=== PATIENT | male | born 1970 | race Two or more races ===

== ENCOUNTER 2017-04-17 09:57 | Inpatient (IN) | payer MEDICARE, MEDICAID, BC ==
--- NOTE | 2017-04-10 15:15 | HP ---
HISTORY AND PHYSICAL: DATE OF ADMISSION/SURGERY: 04/17/17 DATE OF OFFICE VISIT: 04/06/17 SURGEON: Jenniffer Owen MD * (DICTATED BY TERRY GUPTA) PROCEDURE: Left total hip arthroplasty. CHIEF COMPLAINT: Left hip pain. HISTORY OF PRESENT ILLNESS: Mr. Casillas is a 46-year-old Down syndrome gentleman accompanied by his mother at today's visit. He has continued complaints of left hip pain secondary to end-stage osteoarthritis of the left hip joint. He failed conservative management and is elected to proceed with a left total hip arthroplasty. PAST MEDICAL HISTORY: Down syndrome, asthma, sleep apnea, peripheral vascular disease, gout, hypothyroidism, and macular degeneration. PAST SURGICAL HISTORY: Hernia repair x2. CURRENT MEDICATIONS: 1. Vitamin D. 2. Naproxen. 3. Dulera. 4. Fexofenadine. 5. Indomethacin. 6. Multivitamin. 7. Foltanx. 8. Imodium. 9. PreserVision. 10. ProAir HFA. 11. Synthroid 150 mcg daily. ALLERGIES: To PENICILLIN, ERYTHROMYCIN, IODINE, POLLEN, GLUTEN, IV CONTRAST DYE. FAMILY HISTORY: Heart disease, diabetes, cancer. SOCIAL HISTORY: This is a 46-year-old gentleman, he lives with his parents. He does not smoke, use drugs or alcohol. REVIEW OF SYSTEMS: A complete 14-point review of systems is reviewed with the patient, was positive for hypothyroidism. He denies any heart disease, diabetes , history of DVT, PE or anesthesia problems. PHYSICAL EXAMINATION GENERAL: He is well developed, well nourished, in no acute distress. VITAL SIGNS: He stands 5 feet 6 inches tall, weighs 287 pounds. His blood pressure is 121/68, his heart rate is 54. HEENT: Normocephalic, atraumatic. NECK: Supple. No palpable lymph nodes. PULMONARY: Lungs are clear to auscultation bilaterally. CARDIO: Regular rate and rhythm. Strong S1 and S2. NEUROLOGIC: He is alert and oriented x3. Cranial nerves II through XII are intact. MUSCULOSKELETAL: Left lower extremity, the skin is intact. There are no open wounds or abrasions. He has fairly limited internal and external rotation of the left hip and walks with an antalgic type gait. His lower extremity muscle group strengths are intact at 5/5. He has 2+ dorsalis pedis pulses. Intact sensation. ASSESSMENT AND PLAN: Mr. Casillas is a 46-year-old gentleman. He is accompanied with his mother at today's visit. They have both elected to proceed with a left total hip arthroplasty secondary to end-stage osteoarthritis. The surgery is scheduled for 04/17/[address] Owen discussed the risks and benefits of the surgery at today's visit and all of his questions were answered. Coumadin, Percocet and Colace were sent to his pharmacy for postoperative pain control and DVT prophylaxis. He will see Dr. Owen back 2 weeks after the surgery. TERRY GUPTA [id number]/[facility] #: [id number] MTDD
[~2017-04-17 09:57] MED LIST: Buffered Lidocaine 0.9% SYRIN* 5 ML/SYR SYRINGE INTRADERM ONE; Dexamethasone IV* 4 MG/ML 1 ML (4 MG) IV SLOW PU ONE; Famotidine IV* 10 MG/ML 2 ML (20 mg) IV ONE; Levalbuterol 0.63MG/3ML NEB* UNIT OF USE INH ONE; Metoclopramide IV* 5 MG/ML 2 ML VIAL IV SLOW PU ONE
[2017-04-17] MEDS ORDERED: Famotidine IV* 10 MG/ML 2 ML (20 mg) ONE (10:05)
[2017-04-17] MEDS ORDERED: Metoclopramide IV* 5 MG/ML 2 ML VIAL ONE (10:05)
[2017-04-17] MEDS ORDERED: Levalbuterol 1.25MG/0.5ML NEB ONE (10:05)
[2017-04-17] MEDS ORDERED: Dexamethasone IV* 4 MG/ML 1 ML (4 MG) ONE (10:05)
[2017-04-17] MEDS ORDERED: Clindamycin 900 MG IVPREMIX(* 900 MG/50 ML SDV IV ONE (10:06)
[2017-04-17] MEDS ORDERED: Buffered Lidocaine 0.9% SYRIN* 5 ML/SYR SYRINGE ONE (10:06)
[2017-04-17] MEDS ORDERED: KETAMINE HCL* 50 MG/ML 10 ML VIAL ONE (11:29)
[2017-04-17] MEDS ORDERED: Midazolam* 1 MG/ML 5 ML VIAL (5 MG) ONE (11:29)
[2017-04-17] MEDS ORDERED: Bupivacaine 0.5% SDV PF* 30 ML VIAL ONE (11:29)
[2017-04-17] MEDS ORDERED: Ondansetron INJ* 2 MG/ML VIAL ONE (11:29)
[2017-04-17] MEDS ORDERED: Propofol* 10 MG/ML 20 ML BTL IV PUSH ONE (11:29)
[2017-04-17] MEDS ORDERED: Morphine PF AMP (0.5MG/ML)* 5 MG/10 ML AMP ONE (11:29)
[2017-04-17] MEDS ORDERED: Glycopyrrolate IV* 0.2 MG/ML 1 ML VIAL ONE (12:07)
[2017-04-17] MEDS ORDERED: oxyCODONE/Acetamin 5/325 MG* TAB PO PRN ×2 (13:35)
[2017-04-17] MEDS ORDERED: Ondansetron INJ* 2 MG/ML VIAL IV PRN (13:35)
[2017-04-17] MEDS ORDERED: Naloxone* 0.4 MG/ML 1 ML VIAL IV PRN (13:35)
[2017-04-17] MEDS ORDERED: Nalbuphine* 20 MG/ML 1 ML VIAL IV PRN ×3 (13:35)
[2017-04-17] MEDS ORDERED: Scopolamine 1.5 mg* PATCH TRANSDERM PRN (13:35)
[2017-04-17] MEDS ORDERED: fentaNYL* 50 MCG/ML 2 ML VIAL (100 MCG VIAL) IV PRN (13:35)
[2017-04-17] MEDS ORDERED: fentaNYL* 50 MCG/ML 2 ML VIAL (100 MCG VIAL) ONE (14:28)
[2017-04-17] MEDS ORDERED: Magnesium Hydroxide LIQ* 30 ML UDC PO PRN (15:42)
[2017-04-17] MEDS ORDERED: Polyethylene Glycol 3350* 17 GM PACKET PO PRN (15:42)
[2017-04-17] MEDS ORDERED: Acetaminophen TAB* 325 MG PO PRN (15:42)
[2017-04-17] MEDS ORDERED: Bisacodyl SUPP* 10 MG SUPP PR PRN (15:42)
[2017-04-17] MEDS ORDERED: Albuterol HFA INHALER* 8 gm MDI INH PRN (15:45)
[2017-04-17] MEDS ORDERED: Fluticasone NASAL SPRAY 50MCG* 16 gm SPRAY BTL BOTH NARES PRN (15:45)
[2017-04-17] MEDS ORDERED: Ketoconazole 2 % CREAM (NF) 30 GM TUBE TOPICAL SCH (16:00)
--- NOTE | 2017-04-17 16:12 | RAD ---
INDICATION: Total left hip replacement surgery. COMPARISON: Comparison is made with a prior x-ray study of the left hip from March 12, 2017. TECHNIQUE: 3 portable x-ray studies of the left hip were obtained in the operating room. FINDINGS: The patient is undergoing a total left hip replacement surgery. The acetabular prosthesis is in place. There is also a femoral prostheses template present on the last 2 films. IMPRESSION: INTRAOPERATIVE CONTROL FILMS.
--- NOTE | 2017-04-17 16:20 | RAD ---
Indication: Postop LEFT total hip replacement. Comparison: March 12, 2017 radiographs. Technique: AP pelvis and AP and crosstable lateral views LEFT hip. Report: LEFT total hip prosthesis in place. Mild superior position of the acetabular component reflects pre-existing degenerative enlargement of the LEFT acetabulum. The trochanteric region appears symmetric with the RIGHT side. No periprosthetic fracture evident. Overlying soft tissue edema and subcutaneous emphysema. Surgical clips reflecting previous ventral hernia repair. IMPRESSION: Unremarkable immediate postop exam following LEFT total hip replacement.
[2017-04-17] MEDS: Mometasone/Formoter 200/5 MDI INH SCH (21:20)
[2017-04-17] MEDS ORDERED: Warfarin TAB(*) 6 MG PO ONE (22:00)
[2017-04-17] MEDS: Docusate CAP* 100 MG PO SCH (22:34)
[2017-04-17] MEDS: Clindamycin 600 MG IVPREMIX(* 600 MG/50 ML SDV IV SCH (22:35)
[2017-04-18] MEDS ORDERED: oxyCODONE TAB* 5 MG TAB PO PRN (04:00)
[2017-04-18] MEDS ORDERED: diPHENhydraMINE IV* 50 MG/ML 1 ml VIAL (BENADRYL) IV PRN (04:00)
[2017-04-18] MEDS ORDERED: Morphine INJ* 2 MG/ML 1 ML SYRINGE IV PRN (04:00)
[2017-04-18] MEDS ORDERED: Ondansetron INJ* 2 MG/ML VIAL IV PRN (04:00)
[2017-04-18] MEDS: Levothyroxine TAB* 150 MCG TAB PO SCH (05:56)
[2017-04-18] MEDS: Clindamycin 600 MG IVPREMIX(* 600 MG/50 ML SDV IV SCH ×2 (05:59→14:20)
[2017-04-18] MEDS ORDERED: Lactated Ringers 500 ml BAG* 500 ML IV ONE (06:20)
[2017-04-18 06:48] LABS: Hematocrit 31 % (42-52); Hemoglobin 10.2 g/dl (14.0-18.0)
[2017-04-18 07:03] LABS: BUN/Creatinine Ratio 12.6 (8-20); Calcium 8.3 mg/dL (8.6-10.3); EGFR African American 91.3 (>60); Potassium 4.3 mmol/L (3.5-5.0)
[2017-04-18] MEDS: oxyCODONE/Acetamin 5/325 MG* TAB PO PRN ×2 (07:07→12:38)
[2017-04-18] MEDS: Mometasone/Formoter 200/5 MDI INH SCH ×2 (08:27→21:55)
[2017-04-18] MEDS: Cholecalciferol TAB* 1000 UNITS PO SCH (08:51)
[2017-04-18] MEDS: Pyridoxine TAB* 50 MG PO SCH (08:51)
[2017-04-18] MEDS: Docusate CAP* 100 MG PO SCH ×2 (08:51→23:09)
[2017-04-18] MEDS ORDERED: Influenza VAC *QUAD* 2017-18* 0.5 ML SYRINGE IM ONE (09:00)
--- NOTE | 2017-04-18 09:37 | PN ---
Progress Note - Progress Note Date of Service: 04/18/17 SOAP: Subjective: []Patient seen OOB in chair, father present. He is doing well with mild complaints of left hip pain. He denies, SOB, dizziness or CP. Objective: [] Vital Signs Temp 97.7 F 04/18/17 07:35 Pulse 67 04/18/17 07:35 Resp 16 04/18/17 08:50 BP 98/51 04/18/17 07:35 Pulse Ox 100 04/18/17 08:00 Intake & Output 04/17/17 04/18/17 04/18/17 18:59 06:59 18:59 Intake Total 3535 1267 360 Output Total 300 450 Balance 3235 817 360 Weight 282 lb 9.6 oz Intake: IV Fluids 2850 935 LR 2850 935 IVPB 107 Clindamycin 107 Oral 685 225 360 Output: Hairston 300 450 Other: # Bowel Movements 0 Laboratory Results - last 24 hr 04/18/17 04/18/17 04/18/17 06:41 06:42 06:42 Hgb 10.2 L Hct 31 L INR (Anticoag Therapy) 1.06 Sodium 136 Potassium 4.3 Chloride 100 L Carbon Dioxide 32 Anion Gap 4 BUN 14 Creatinine 1.11 Est GFR ( Amer) 91.3 Est GFR (Non-Af Amer) 71.0 BUN/Creatinine Ratio 12.6 Glucose 143 H Calcium 8.3 L Left hip dressing in dry and intact calf Non tender and soft +DF/PF left ankle sensation and circulation intact Assessment: []s/p left total hip arthroplasty POD #1 Plan: []PT/OT WBAT LLE Coumadin with Lovenox bridge- 8mg today Home with VNS when goals met
[2017-04-18] MEDS: Multivitamins/Minerals TAB PO SCH (10:22)
--- NOTE | 2017-04-18 11:08 | OP ---
DATE OF OPERATION: 04/17/17 - ROOM #341 DATE OF : 68 ATTENDING SURGEON: Jenniffer Owen MD MEDICINE MAN: TERRY Landeros. Ms. Mckeon did help throughout the procedure with preparation of the leg, wound retraction, manipulation of the hip, and wound closure. ANESTHESIOLOGIST: Dr. Mehta ANESTHESIA: Spinal. PRE-OP DIAGNOSIS: Severe end-stage degenerative osteoarthritis of the left hip joint secondary to developmental dysplasia. POST-OP DIAGNOSIS: Severe end-stage degenerative osteoarthritis of the left hip joint secondary to developmental dysplasia. OPERATIVE PROCEDURE: Left total hip arthroplasty. COMPLICATIONS: None. EBL: 550 cc. SPECIMEN: Femoral head and acetabular reaming sent to pathology. HARDWARE USED: This is uncemented Neyda total hip hardware. For the acetabulum, a Trident Tritanium hemispherical shell 54E with one 15-mm screw. For the insert, an MDM liner cementless 42E. For the femoral stem, an accolade TMZF size 3 with a 132-degree neck. For the head, a Biolox delta ceramic V40 femoral head 28 -4 and the insert is an MDM Sabianism X3 28/48/42E. BRIEF HISTORY/INDICATION: Mr. Casillas is a 46-year-old gentleman with Down syndrome and chronic left hip pain. The patient's radiograph showed severe end- stage arthritis with [id number] contact secondary to developmental dysplasia. He did have acetabular and femoral anatomy consistent with developmental dysplasia and superior migration of the femoral head. The patient's parents felt that he had failed conservative treatment with physical therapy, antiinflammatories, pain medication, and ambulatory assistive devices. He could no longer walk or take part in chosen activities without severe pain. They elected to proceed with left total hip arthroplasty. The patient and his parents understood the risks of surgery included but were not limited to bleeding, infection, damage to nearby structures, continued pain, need for further surgery, intraoperative fracture, nerve palsy, hardware failure or loosening, dislocation, leg length discrepancies, stroke, heart attack, blood clot, and . They wished to proceed. INTRAOPERATIVE FINDINGS: Intraoperatively, the patient was noted to have anatomy consistent with developmental dysplasia. He had deformity of the acetabulum with shallow acetabulum, not well formed with superior migration of the femoral head. Femur had significant valgus, anteverted femoral neck with deformed femoral head. DESCRIPTION OF PROCEDURE: Mr. Casillas was identified in the preanesthesia unit. His left lower extremity was marked as the correct operative site. Informed consent was signed and placed in the chart. The patient was taken to the operating room and placed under spinal anesthesia. A Hairston catheter was placed. He was placed on the peg board in the right lateral decubitus position with all bony prominences well padded. Left lower extremity was prepped and draped in the usual sterile fashion. Preop time-out was made to correctly identify the patient's side and site. Appropriate perioperative antibiotics were given within 1 hour of incision. A 15-cm posterior hip incision was made with a 10-blade and carried down to the lateral fascial layer. Lateral fascial layer was incised in line with the skin incision. The patient had 8 cm of subcutaneous fat and his morbid obese body habitus did make the procedure more complex and difficult. Charnley retractor was placed. The piriformis and conjoint tendons were identified and elevated off the posterolateral femur using electrocautery. These were tagged with two # 5 Ethibonds. Next, the electrocautery was used to make a standard posterolateral capsular flap and this was tagged with two #5 Ethibonds. The hip was carefully dislocated. Lesser troch to center of the femoral neck was measured at approximately 50 mm. The appropriate femoral neck cut was made with an oscillating saw and the femoral head was sent to pathology. The femur was carefully retracted anteriorly. After appropriate placement of retractors, the acetabulum was visualized. The acetabulum was shallow and poorly defined. There was superior wear, which was extensive. A size-48 reamer was used to establish a position for the acetabular cup. Reamer was increased in size to size 53. Bleeding subchondral bone bed was obtained. 53 trial had good fit. Final implant chosen was a Trident Tritanium hemispherical shell 54E, this had excellent fit and stability. There was appropriate anteversion and abduction angle. A 15-mm screw was placed in the superoposterior quadrant for extra stability. Liner chosen was a cementless MDM liner 42E, this was impacted into the acetabulum without difficulty. The stability of the liner was checked and rechecked and noted to be stable. Attention was next turned to preparation of the femur. Canal finder was used to enter the proximal femur. The femur was sequentially broached up to a size 3. Femoral anatomy was abnormal with valgus neck that had increased anteversion. A size 3 femoral broach had good stability. A 132 neck trial was chosen as well as a 28 -4 femoral head as well as the insert 28/48/42E trial. The hip was reduced and taken through a range of motion. Soft tissue tension was appropriate and leg lengths were satisfactory. The hip was stable in all positions. All trials were carefully removed. Final implant chosen was an Accolade TMZF size 3 with a 132-degree neck. This was impacted into the femoral canal without difficulty. Good stability was achieved. Anteversion was appropriate. A 28 -4 Biolox delta ceramic V40 femoral head was chosen as well as a 28/48/42E MDM X3 Sabianism insert. This was impacted onto the femoral stem without difficulty. The hip was reduced and taken through a range of motion. The hip was stable in all positions. There was good soft tissue tension and leg lengths were appropriate. The hip was copiously irrigated with sterile saline. The previously tagged capsule and tendons were reapproximated to the posterolateral femur through trochanteric drill holes. The lateral fascial layer was reapproximated using interrupted #1 Vicryls. The rest of the incision was closed in a layered fashion using 0 and 2-0 Vicryls. Skin was closed using running 3-0 Monocryl and Dermabond. Sterile Adaptic, 4x4s, and paper tape were used to cover the incision. The patient's anesthesia was reversed without difficulty. He was taken to the PACU in stable condition. Intended weightbearing will be weightbearing as tolerated. Intended DVT prophylaxis will be Coumadin with a Lovenox bridge. [id number]/[facility] #: [id number] [facility]
[2017-04-18] MEDS ORDERED: Scopolomine PATCH Remove* 1 NOTE MISC PATCH OFF ONE (13:35)
[2017-04-18] MEDS: Enoxaparin(*) 30 MG/0.3 ML SYR SUBCUT SCH (16:26)
[2017-04-18] MEDS ORDERED: Warfarin TAB(*) 4 MG PO ONE (17:00)
[2017-04-19] MEDS: oxyCODONE/Acetamin 5/325 MG* TAB PO PRN ×3 (00:56→12:56)
[2017-04-19 06:05] LABS: Hematocrit 30 % (42-52); Hemoglobin 9.9 g/dl (14.0-18.0)
[2017-04-19] MEDS: Levothyroxine TAB* 150 MCG TAB PO SCH (06:29)
[2017-04-19] MEDS: Pyridoxine TAB* 50 MG PO SCH (08:21)
[2017-04-19] MEDS: Mometasone/Formoter 200/5 MDI INH SCH ×2 (08:21→20:20)
[2017-04-19] MEDS: Docusate CAP* 100 MG PO SCH ×2 (08:21→20:21)
[2017-04-19] MEDS: Cholecalciferol TAB* 1000 UNITS PO SCH (08:21)
[2017-04-19] MEDS: Multivitamins/Minerals TAB PO SCH (08:21)
--- NOTE | 2017-04-19 09:56 | PN ---
Progress Note - Progress Note Date of Service: 04/19/17 SOAP: Subjective: []Patient seen OOB in chair, working with OT. Pain well managed. No other complaints. Both parents present. Objective: [] Vital Signs Temp 99.1 F 04/19/17 07:59 Pulse 78 04/19/17 07:59 Resp 16 04/19/17 08:00 BP 108/50 04/19/17 08:06 Pulse Ox 93 04/19/17 08:00 Intake & Output 04/18/17 04/19/17 04/19/17 18:59 06:59 18:59 Intake Total 3282 1000 Output Total 1350 200 325 Balance 1932 800 -325 Intake: IV Fluids 1442 Clindamycin 55 LR 1387 Oral 1840 1000 Output: Urine 850 200 325 Hairston 500 Other: Estimated Void Large # Bowel Movements 0 Estimated Stool Amount Large # Voids 1 Laboratory Results - last 24 hr 04/19/17 04/19/17 05:46 05:47 Hgb 9.9 L Hct 30 L INR (Anticoag Therapy) 1.37 H Dressings taking down, left hip wound is benign new 4x4s and tape applied to incision remains NVI distally Assessment: []s/p Left total hip arthroplasty POD #2 Plan: []PT/OT WBAT LLE Coumadin- 6mg today Home with VNS 04/20 if all goals met
[2017-04-19] MEDS: Enoxaparin(*) 30 MG/0.3 ML SYR SUBCUT SCH (16:33)
[2017-04-19] MEDS ORDERED: Warfarin TAB(*) 6 MG PO SCH (17:00)
[2017-04-20] MEDS: oxyCODONE/Acetamin 5/325 MG* TAB PO PRN ×3 (01:31→09:19)
[2017-04-20] MEDS: Levothyroxine TAB* 150 MCG TAB PO SCH (05:54)
[2017-04-20 07:01] LABS: Hematocrit 29 % (42-52); Hemoglobin 9.8 g/dl (14.0-18.0)
--- NOTE | 2017-04-20 08:36 | PN ---
Progress Note - Progress Note Date of Service: 04/20/17 SOAP: Subjective: 46 y/o male with downs syndrome s/p L ZONIA 04/17/[address] Owen. vss afebrile overnight Objective: General- MSK- Assessment: 46 y/o male with downs syndrome s/p L ZONIA 04/17/[address] Owen. Plan: - DVT prophylaxis- lovenox today, INR 1.57. Coumadin 6mg tonight, alter 4,6 over weekend - Continue PT/ OT as shown -
[2017-04-20] MEDS: Multivitamins/Minerals TAB PO SCH (09:17)
[2017-04-20] MEDS: Cholecalciferol TAB* 1000 UNITS PO SCH (09:17)
[2017-04-20] MEDS: Pyridoxine TAB* 50 MG PO SCH (09:18)
[2017-04-20] MEDS: Docusate CAP* 100 MG PO SCH (09:19)
[2017-04-20] MEDS: Mometasone/Formoter 200/5 MDI INH SCH (09:20)
--- NOTE | 2017-04-20 11:11 | PN ---
Progress Note - Progress Note Date of Service: 04/20/17 SOAP: Subjective: []Patient seen OOB in chair, parents present. He is doing well and has mastered his therapy goals. He feels ready to go home this afternoon after PT. Objective: [] Vital Signs Temp 98.8 F 04/20/17 07:25 Pulse 83 04/20/17 07:25 Resp 16 04/20/17 09:30 BP 110/55 04/20/17 07:25 Pulse Ox 91 04/20/17 09:30 Intake & Output 04/19/17 04/20/17 04/20/17 18:59 06:59 18:59 Intake Total 1300 780 345 Output Total 325 0 Balance 975 780 345 Intake: Oral 1300 780 345 Output: Urine 325 0 Other: Estimated Void Large Large Date of Last Bowel 04/19/17 Movement # Bowel Movements 0 1 Estimated Stool Amount Medium Medium # Voids 1 1 Laboratory Results - last 24 hr 04/20/17 04/20/17 06:43 06:43 Hgb 9.8 L Hct 29 L INR (Anticoag Therapy) 1.57 H Left hip incision benign calf NT and soft +DF/PF left ankle sensation intact Assessment: []s/p LTH POD #3 Plan: []PT WBAT LLE Coumadin 4 mg before discharge today Follow up as scheduled with Dr. Owen in 10- 14 days
[2017-04-20 11:52] VITALS: BP 109/52
[2017-04-20] MEDS: Enoxaparin(*) 30 MG/0.3 ML SYR SUBCUT SCH (14:53)
[2017-04-20] MEDS ORDERED: Warfarin TAB(*) 4 MG PO ONE (15:00)
--- NOTE | 2017-04-21 02:34 | DS ---
DISCHARGE SUMMARY: DATE OF ADMISSION: 04/17/17 DATE OF DISCHARGE: 04/20/17 ATTENDING PHYSICIAN: Dr. Jenniffer Owen.* (DICTATED BY TERRY PAYTON) ADMISSION DIAGNOSIS: Severe end-stage degenerative osteoarthritis of the left hip secondary to developmental dysplasia. DISCHARGE DIAGNOSIS: Severe end-stage degenerative osteoarthritis of the left hip secondary to developmental dysplasia. SURGERY PERFORMED: Left total hip orthoplasty. HOSPITAL COURSE: The patient is a 46-year-old male with Down syndrome and chronic left hip pain. His x-rays revealed severe end-stage osteoarthritis with bone-on- bone contact secondary to developmental dysplasia with noted superior migration of the femoral head. The patient's parents stated that he had tried physical therapy, anti-inflammatories, pain medication, and ambulatory assistive devices and could no longer walk or take part in chosen activities without severe pain. They elected to proceed with the left total hip orthoplasty and he was taken to the operating room on 04/17/17 for the aforementioned procedure. The patient tolerated the procedure well and left the operating room in stable condition. Postoperatively, he progressed very well with his physical therapy and occupational therapy exercises. He had no acute postoperative complications. It was felt that he was medically and orthopedically stable for discharge to home on the date of 04/20/17. CONDITION ON DISCHARGE: He is afebrile, pulse 83, respiratory rate 16, O2 sat 91%, blood pressure 110/55. His INR is 1.57. His hemoglobin 9.8, hematocrit 29. His left hip incision is healing without evidence of infection. His calf is soft and nontender. He has active dorsiflexion and plantar flexion of the left ankle. His circulation and sensation are intact distally. PLAN: Discharged to home with visiting nursing services. He will receive 4 mg of Coumadin today, 04/20/17, before discharge. I recommend 4 mg of Coumadin on 04/21/17, and 2 mg of Coumadin on 04/22/17. All instructions were reviewed with both of the patient's parents today. He has a followup scheduled with Dr. Owen in roughly 10 to 14 days. He will continue with the Colace while on the narcotic pain medication. Visiting nursing services to draw INR on Sunday and as scheduled. If there is any increased left hip pain, any noted drainage from his incision, fever, chills, calf pain, or swelling, the office is to be contacted prior to his scheduled appointment with Dr. Owen. All questions were answered. TERRY PAYTON [id number]/[facility] #: [id number] [place]
== END 2017-04-20 15:10 | disposition home health service (06) | DRG 470 ==
LOC: AA 09:57 → SSU 15:42
PROVIDERS: ADMIT Orthopaedic Surgery Adult Reconstructive Orthopaedic Surgery; ATTEND Orthopaedic Surgery Adult Reconstructive Orthopaedic Surgery
PROC: 0SRB03A Replacement of Left Hip Joint with Ceramic Synthetic Substitute, Uncemented, Open Approach (ICD-10-PCS; principal; 2017-04-17 12:15)
PROC: 3E0234Z Introduction of Serum, Toxoid and Vaccine into Muscle, Percutaneous Approach (ICD-10-PCS; 2017-04-18)
DX: M16.12 Unilateral primary osteoarthritis, left hip (principal); G62.9 Polyneuropathy, unspecified; E03.9 Hypothyroidism, unspecified; J45.909 Unspecified asthma, uncomplicated; E66.9 Obesity, unspecified; G47.33 Obstructive sleep apnea (adult) (pediatric); K58.9 Irritable bowel syndrome, unspecified; M24.852 Other specific joint derangements of left hip, not elsewhere classified; M21.052 Valgus deformity, not elsewhere classified, left hip; I73.9 Peripheral vascular disease, unspecified; M10.9 Gout, unspecified; H35.30 Unspecified macular degeneration; Z82.49 Family history of ischemic heart disease and other diseases of the circulatory system; Z83.3 Family history of diabetes mellitus; Z80.9 Family history of malignant neoplasm, unspecified; Z88.0 Allergy status to penicillin; Z88.1 Allergy status to other antibiotic agents; Z88.8 Allergy status to other drugs, medicaments and biological substances; Z91.041 Radiographic dye allergy status; Z91.048 Other nonmedicinal substance allergy status; Q65.89 Other specified congenital deformities of hip; Z23 Encounter for immunization; Q90.9 Down syndrome, unspecified; Z68.42 Body mass index [BMI] 45.0-49.9, adult
CPT/HCPCS: 36415; 72170; 80048; 85014; 85018; 85610; 90686; 94640; 94760; A9270-GY; C1713; C1776; J1100; J1650; J2250; J2405; J2704; J2765; J3010

== ENCOUNTER 2018-01-17 08:39 | Inpatient (IN) | payer MEDICARE, BC, MEDICAID ==
[2018-01-17] MEDS ORDERED: Ketorolac INJ* 30 MG/ML 1 ML VIAL IV PUSH ONE (08:45)
--- NOTE | 2018-01-17 09:57 | RAD ---
Indication: Fall. LEFT hip pain. Clinical concern for potential prosthetic dislocation. Comparison: July 09, 2017 Technique: AP pelvis and AP and crosstable lateral views LEFT hip. Report: There is posterior cephalad dislocation of the prosthetic LEFT hip. No periprosthetic fracture or radiographic stigmata of prosthesis loosening evident. Soft tissue swelling about the LEFT hip. No pelvic fracture or joint diastases evident. Postsurgical change of previous ventral hernia repair. IMPRESSION: Posterior cephalad dislocation of the prosthetic LEFT hip without evidence for fracture or prosthesis loosening.
--- NOTE | 2018-01-17 10:35 | RAD ---
HISTORY: pre op hip/femur, femur fracture, injury COMPARISONS: April 06, 2017 VIEWS: 1: frontal portable view of the chest at 10:00 AM FINDINGS: LINES AND TUBES: None. CARDIOMEDIASTINAL SILHOUETTE: The cardiomediastinal silhouette is normal for portable technique. PLEURA: The costophrenic angles are sharp. No pleural abnormalities are noted. LUNG PARENCHYMA: The lungs are clear. ABDOMEN: The upper abdomen is clear. There is no subphrenic gas. BONES AND SOFT TISSUES: No bone or soft tissue abnormalities are noted. IMPRESSION: NO ACTIVE CARDIOPULMONARY DISEASE.
[2018-01-17 10:42] LABS: ABS Basophils 0.1 10^3/ul (0-0.2); ABS Eosinophils 0 10^3/ul (0-0.6); ABS Lymphocytes 0.8 10^3/ul (1.0-4.8); ABS Monocytes 0.5 10^3/ul (0-0.8); ABS Neutrophils 6.8 10^3/ul (1.5-7.7); ABS Nucleated RBC 0 10^3/ul; Eosinophil % 0.3 % (0-6); Hematocrit 46 % (42-52); Hemoglobin 15.6 g/dl (14.0-18.0); Lymphocyte % 10.1 % (25-47); Mean Corpuscular HGB Conc 34 g/dl (31-36); Mean Corpuscular Hemoglobin 34 pg (27-31); Mean Corpuscular Volume 100 fL (80-94); Mean Platelet Volume 8.3 um3 (7.4-10.4); Nucleated Red Blood Cells % 0; Platelet Count 201 10^3/ul (150-450); Red Blood Count 4.58 10^6/ul (4.0-5.4); Red Cell Distribution Width 15 % (10.5-15); White Blood Count 8.3 10^3/ul (3.5-10.8)
[2018-01-17 10:47] LABS: EGFR Non-African American 74.6 (>60); INR 0.86 (0.77-1.02)
[2018-01-17] MEDS ORDERED: Clindamycin 900 MG IVPREMIX(* 900 MG/50 ML SDV IV ONE (12:05)
[2018-01-17] MEDS ORDERED: Midazolam* 1 MG/ML 5 ML VIAL (5 MG) ONE (13:24)
[2018-01-17] MEDS ORDERED: fentaNYL* 50 MCG/ML 2 ML VIAL (100 MCG VIAL) ONE ×2 (13:24→15:51)
--- NOTE | 2018-01-17 14:37 | ED ---
Jf Akbar Stephanie, scribed for lOiver Patel MD on 01/17/18 at 0852 . Lower Extremity - HPI Summary HPI Summary: The pt is a 47 y/o M BIBA to the ED with c/o L knee and L hip pain s/p mechanical fall in the shower that occurred at 08:00 today. Symptoms include L LE numbness. The pt denies head trauma. - History of Current Complaint Stated Complaint: FALL/LT LEG INJURY Time Seen by Provider: 01/17/18 08:40 Hx Obtained From: Patient Mechanism Of Injury: Fall From A Standing Position Onset of Pain: Post Accident Onset/Duration: Minutes Severity Currently: Moderate Pain Intensity: 5 Pain Scale Used: 0-10 Numeric Timing: Constant Location: Is Discrete @ - L LE Associated Signs And Symptoms: Positive: Knee Pain, Other - L LE numbness Aggravating Factor(s): Movement Alleviating Factor(s): Nothing Able to Bear Weight: No - Allergies/Home Medications Allergies/Adverse Reactions: Allergies Allergy/AdvReac Type Severity Reaction Status Date / Time erythromycin base Allergy Intermediate Nausea And Verified 01/17/18 08:55 Vomiting Penicillins Allergy Intermediate Rash Verified 01/17/18 08:55 Perfume Allergy Intermediate triggers Verified 04/17/17 10:26 an asthma attack Dander Allergy Intermediate runny Uncoded 04/17/17 10:26 nose, stuffy, triggers asthma attack Gluten Allergy Intermediate intolerance Uncoded 04/17/17 10:26 to gluten Pollen Allergy Intermediate triggers Uncoded 04/17/17 10:26 asthma attack IV CONTRAST Allergy Unknown Unknown Uncoded 04/17/17 10:26 Reaction Details Home Medications: Home Medications Cholecalciferol TAB* [Vitamin D TAB*] 1,000 unit PO DAILY 01/17/18 [History Confirmed 01/17/18] Loperamide CAP* [Imodium CAP*] 2 mg PO Q4H PRN 01/17/18 [History Confirmed 01/17] Mecobal/Levomefolat Ca/B6 Phos [Foltanx] 2 tab PO DAILY 01/17/18 [History Confirmed 01/17/18] Multivitamins/Minerals TAB* [Theragran/minerals TAB*] 1 tab PO DAILY 01/17/18 [ History Confirmed 01/17/18] PMH/Surg Hx/FS Hx/Imm Hx Endocrine/Hematology History: Reports: Hx Thyroid Disease Respiratory History: Reports: Hx Asthma, Hx Sleep Apnea GI History: Reports: Hx Irritable Bowel, Other GI Disorders - gluten intolerance Musculoskeletal History: Reports: Hx Arthritis - left hip Denies: Hx Rheumatoid Arthritis, Hx Osteoporosis Sensory History: Reports: Hx Contacts or Glasses Denies: Hx Hearing Aid Opthamlomology History: Reports: Hx Contacts or Glasses Psychiatric History: Reports: Other Psychiatric Issues/Disorders - Down's Syndrome - Cancer History Hx Chemotherapy: No - Surgical History Surgery Procedure, Year, and Place: umbilical hernia repair x3. L hip replacement Hx Anesthesia Reactions: No - Immunization History Date of Tetanus Vaccine: Unk Date of Influenza Vaccine: Fall 2013 Infectious Disease History: No Infectious Disease History: Denies: Traveled Outside the [place] in Last 30 Days - Family History Known Family History: Negative: Renal Disease - Social History Occupation: Employed Part-time Lives: With Family Alcohol Use: None Hx Substance Use: No Substance Use Type: Reports: None Hx Tobacco Use: No Smoking Status (MU): Never Smoked Tobacco Have You Smoked in the Last Year: No Review of Systems Negative: Fever Positive: Other - L knee pain, L hip pain Positive: Numbness - L LE. Negative: Slurred Speech All Other Systems Reviewed And Are Negative: Yes Physical Exam - Summary Physical Exam Summary: Appearance: Well appearing, no pain distress Skin: warm, dry, stasis dermatitis of lower leg bilaterally, healed surgical scar on the lateral aspect of the L hip. Head/face: normal Eyes: EOMI, HEU ENT: normal Neck: supple, non-tender Respiratory: CTA, breath sounds present Cardiovascular: RRR, pulses symmetrical Abdomen: non-tender, soft Bowel Sounds: present Musculoskeletal: shortening of LLE Neuro: normal, sensory motor intact, A&Ox3 Triage Information Reviewed: Yes Vital Signs On Initial Exam: Initial Vitals Temp Pulse Resp BP Pulse Ox 97.8 F 63 16 125/57 95 01/17/18 08:42 01/17/18 08:42 01/17/18 08:42 01/17/18 08:42 01/17/18 08:42 Vital Signs Reviewed: Yes Diagnostics - Vital Signs Vital Signs Temp Pulse Resp BP Pulse Ox 01/17/18 08:42 97.8 F 63 16 125/57 95 - Laboratory Lab Results: Lab Results 01/17/18 01/17/1801/17/18 Range/Units 10:17 10:17 10:17 WBC 8.3 (3.5-10.8) 10^3/ul RBC 4.58 (4.0-5.4) 10^6/ul Hgb 15.6 (14.0-18.0) g/dl Hct 46 (42-52) % MCV 100 H (80-94) fL MCH 34 H (27-31) pg MCHC 34 (31-36) g/dl RDW 15 (10.5-15) % Plt Count 201 (150-450) 10^3/ul MPV 8.3 (7.4-10.4) um3 Neut % (Auto) 82.6 (38-83) % Lymph % (Auto) 10.1 L (25-47) % [place] % (Auto) 6.1 (0-7) % Eos % (Auto) 0.3 (0-6) % Baso % (Auto) 0.9 (0-2) % Absolute Neuts (auto) 6.8 (1.5-7.7) 10^3/ul Absolute Lymphs (auto) 0.8 L (1.0-4.8) 10^3/ul Absolute Monos (auto) 0.5 (0-0.8) 10^3/ul Absolute Eos (auto) 0 (0-0.6) 10^3/ul Absolute Basos (auto) 0.1 (0-0.2) 10^3/ul Absolute Nucleated RBC 0 10^3/ul Nucleated RBC % 0 INR (Anticoag Therapy) 0.86 (0.77-1.02) APTT 26.7 (26.0-36.3) seconds Sodium 138 L (139-145) mmol/L Potassium 4.2 (3.5-5.0) mmol/L Chloride 102 (101-111) mmol/L Carbon Dioxide 30 (22-32) mmol/L Anion Gap 6 (2-11) mmol/L BUN 12 (6-24) mg/dL Creatinine 1.06 (0.67-1.17) mg/dL Est GFR ( Amer) 95.9 (>60) Est GFR (Non-Af Amer) 74.6 (>60) BUN/Creatinine Ratio 11.3 (8-20) Glucose 136 H (70-100) mg/dL Calcium 9.2 (8.6-10.3) mg/dL Result Diagrams: 01/17/18 10:17 01/17/18 10:17 Lab Statement: Any lab studies that have been ordered have been reviewed, and results considered in the medical decision making process. - Radiology Hip/Pelvis XRay Xray Interpretation: Positive (See Comments) Radiology Interpretation Completed By: Radiologist - Posterior cephalad dislocation of the prosthetic LEFT hip without evidence for fracture or prosthesis loosening. ED physician has reviewed this report. CXR Xray Interpretation: No Acute Changes Radiology Interpretation Completed By: Radiologist - NO ACTIVE CARDIOPULMONARY DISEASE. ED physician has reviewed this report. - EKG 10:10 Cardiac Rate: Bradycardia EKG Rhythm: Sinus Bradycardia - [address] Segment: Normal Ectopy: None Lower Extremity Course/Dx - Course Course Of Treatment: At 09:50, ED physician spoke to orthopedist. Patient with Down syndrome and left hip prosthesis status post fall and with deformity. Pain with movement. Appears as dislocation. Original films looked as though there might be artifact versus femoral shaft fracture. Subsequent films of the femur ruled out out. Orthopedist contacted and will take the patient to the OR for operative reduction of the dislocation given his comorbidities. - Diagnoses Differential Diagnosis/HQI/PQRI: Positive: Other - Femur fracture versus pelvic fracture versus dislocation Provider Diagnoses: Dislocation of hip joint prosthesis - Physician Notifications Discussed Care Of Patient With: Indy Saravia Time Discussed With Above Provider: 09:47 Instructed by Provider To: Will See In ED Discharge - Sign-Out/Discharge Documenting (check all that apply): Discharge/Admit/Transfer - Admit - Discharge Plan Condition: Stable Disposition: ADMITTED TO [facility] - Billing Disposition and Condition Condition: STABLE Disposition: Admitted to [facility] The documentation as recorded by the Jf stafford Stephanie accurately reflects the service I personally performed and the decisions made by , Oliver Patel MD.
[2018-01-17] MEDS ORDERED: HYDROmorphone INJ* 1 MG/ML CARPUJECT SYRINGE IV PRN (14:45)
[2018-01-17] MEDS ORDERED: Ondansetron INJ* 2 MG/ML VIAL IV PRN (14:45)
[2018-01-17] MEDS ORDERED: oxyCODONE TAB* 5 MG TAB PO PRN ×2 (14:45→16:24)
[2018-01-17] MEDS ORDERED: fentaNYL* 50 MCG/ML 2 ML VIAL (100 MCG VIAL) IV PRN (14:45)
[2018-01-17] MEDS ORDERED: Acetaminophen IV 1GM/100ML * 10 MG/ML VIAL IVPB ONE (14:45)
[2018-01-17] MEDS ORDERED: Naloxone* 0.4 MG/ML 1 ML VIAL IV PRN (14:45)
[2018-01-17] MEDS ORDERED: DiMENhydriNATE IV* 50 MG/ML VIAL IV PUSH PRN (14:45)
--- NOTE | 2018-01-17 15:04 | RAD ---
INDICATION: Closed reduction of left hip, history of left hip injury, dislocation COMPARISONS: January 17, 2018 TECHNIQUE: Fluoroscopy was provided for a surgical procedure. Total fluoroscopy time is: 5.4 seconds FINDINGS: A single spot image demonstrates a hip arthroplasty with subluxation of the femoral component from the acetabular component. IMPRESSION: FLUOROSCOPY WAS PROVIDED FOR A SURGICAL PROCEDURE CPT II Codes: G9500
[2018-01-17] MEDS ORDERED: EPHEDrine (Pressors)* 50 MG/ML VIAL ONE (15:40)
[2018-01-17] MEDS ORDERED: Acetaminophen IV 1GM/100ML * 100 ML ONE (16:18)
[2018-01-17] MEDS ORDERED: Bisacodyl SUPP* 10 MG SUPP PR PRN (16:24)
[2018-01-17] MEDS ORDERED: diPHENhydraMINE IV* 50 MG/ML 1 ml VIAL (BENADRYL) IV PRN (16:24)
[2018-01-17] MEDS ORDERED: Morphine VIAL* 4 MG/ML VIAL (1 ml vial) IV PRN (16:24)
[2018-01-17] MEDS ORDERED: Magnesium Hydroxide LIQ* 30 ML UDC PO PRN (16:24)
[2018-01-17] MEDS ORDERED: Cyclobenzaprine TAB* 10 MG PO PRN (16:24)
[2018-01-17] MEDS ORDERED: Ondansetron 40 MG VIAL* 2 MG/ML 20 ML VIAL IV PRN (16:24)
[2018-01-17] MEDS ORDERED: oxyCODONE/Acetamin 5/325 MG* TAB PO PRN ×2 (16:24)
--- NOTE | 2018-01-17 16:33 | RAD ---
Indication: Dislocated prosthetic LEFT hip. Comparison: LEFT hip radiographs of the same date. Technique: AP and crosstable lateral views LEFT femur. REPORT AND IMPRESSION: Portable technique with overlying bedding limits image quality. No femur fracture evident. Normal articular alignment at the knee.
[2018-01-17] MEDS ORDERED: Albuterol HFA INHALER* 8 gm MDI INH PRN (16:35)
--- NOTE | 2018-01-17 18:43 | RAD ---
Indication: Left hip dislocation of the prosthesis. 2 views of the left hip including the left femur demonstrates no fracture. Reduction of previously seen identified superior dislocation of the femoral head prosthesis is noted. IMPRESSION: Reduction of previously identified superiorly dislocated femoral head with no fracture.
--- NOTE | 2018-01-17 18:44 | RAD ---
Indication: Left hip prosthesis dislocation. Single view of the pelvis and straight pelvic ring to be intact. Reduction of previously identified dislocation of the left hip prosthesis. IMPRESSION: Reduction of previously identified dislocation of the left hip prosthesis.
[2018-01-17] MEDS ORDERED: Warfarin TAB(*) 6 MG PO ONE (19:30)
[2018-01-17] MEDS: Magnesium Hydroxide LIQ* 30 ML UDC PO SCH (19:50)
[2018-01-17] MEDS: Docusate CAP* 100 MG PO SCH (19:50)
[2018-01-17] MEDS: Clindamycin 600 MG IVPREMIX(* 600 MG/50 ML SDV IV SCH (21:59)
[2018-01-17] MEDS: Mometasone/Formoter 200/5 MDI INH SCH (22:01)
--- NOTE | 2018-01-18 02:57 | HP ---
ADMISSION HISTORY AND PHYSICAL: DATE OF ADMISSION: 01/17/18 ATTENDING PHYSICIAN: Jenniffer Owen MD CHIEF COMPLAINT: Left hip pain. ADMITTING DIAGNOSIS: Dislocation of left hip prosthesis. HISTORY OF PRESENT ILLNESS: Mr. Casillas is a 47-year-old gentleman with Down syndrome who had uncomplicated left total hip arthroplasty in April 2017. He has done well postoperatively. This morning, he was in the shower and admittedly was flexed much more than 90 degrees violating posterior hip precautions. He slipped and had a fall with immediate 10 out of 10 pain and inability to ambulate on the left lower extremity. He reported some left lower extremity numbness. He was brought to the emergency room at [facility] and found to have dislocated left total hip arthroplasty. I was consulted for reduction of the dislocation. The patient denied any fevers, chills, chest pain, shortness of breath. PAST MEDICAL HISTORY: Down syndrome, osteoarthritis, rheumatoid arthritis, osteoporosis, decreased hearing, decreased vision, hypothyroidism, asthma, sleep apnea, irritable bowel syndrome, gluten intolerance. PAST SURGICAL HISTORY: Umbilical hernia repair x3, left total hip arthroplasty. CURRENT MEDICATIONS: 1. Vitamin D 1000 units p.o. daily. 2. Imodium capsule 2 mg p.o. q.4 hours p.r.n. 3. Foltanx 2 tablets p.o. daily. 4. Multivitamin 1 tablet p.o. daily. ALLERGIES: GLUTEN, POLLEN, IV CONTRAST, ERYTHROMYCIN, PENICILLIN, PERFUMES, and DANDER. FAMILY HISTORY: Negative. SOCIAL HISTORY: The patient lives with his parents. No tobacco, alcohol or recreational drug use. Employed part-time, normally an independent ambulator. REVIEW OF SYSTEMS: A 14 systems reviewed with the patient and his family positive for the recent fall, left lower extremity pain and numbness. Negative for fevers, chills, chest pain, shortness of breath, nausea, vomiting, headache or dizziness. Otherwise, review of systems negative are not relevant according to the patient and his parents. PHYSICAL EXAMINATION GENERAL: The patient is overweight male in no apparent distress. Alert and oriented x3. Pleasant mood and appropriate affect, accompanied by his supportive parents. VITAL SIGNS: Temperature 97.8, pulse 63, blood pressure 125/57. HEENT: Atraumatic, normocephalic. Pupils equal and reactive to light. Trachea midline. NECK: Supple. No palpable lymph nodes. CHEST: Clear to auscultation. No wheezes, rubs, or rhonchi. HEART: S1 and S2. ABDOMEN: Soft, nontender, nondistended. EXTREMITIES: Left lower extremity, the patient's skin is intact. No abrasions or open wounds. Short and externally rotated leg. He demonstrates dorsiflexion , plantarflexion. He reports dense numbness in the entire left lower extremity , 2+ palpable DP pulse. DIAGNOSTIC STUDIES/LAB DATA: 01/17/18 labs: White blood cell 8.3, hematocrit 46, platelets 201. Glucose 136, sodium 138, potassium 4.2, chloride 102, BUN and creatinine 12 and 1.06. Plain x-rays of the left hip and femur show dislocated total hip arthroplasty. No obvious periprosthetic fracture. EKG shows some sinus bradycardia with no other abnormalities. Chest x-ray shows no acute changes. ASSESSMENT AND PLAN: Mr. Casillas is a 47-year-old gentleman status post fall with violation of posterior hip precautions resulting in a traumatic dislocation of the left total hip arthroplasty. I discussed the treatment options with the patient and his family. They would like to proceed with closed versus open reduction of the dislocated left total hip arthroplasty. The patient had a MDM Neyda implants. Therefore, I do have concerned about being able to close reduce this. Radiographs show possibility of the femoral head being dislocated not only from the acetabular cup, but also the polyethylene insert, which would make the closed reduction impossible. We will plan for attempted close reduction under anesthesia, but if we cannot reduce the implant, then I will open the hip and exchange the head and liner. Risks and benefits of the procedure are explained. The patient and his parents understand that the risk of the dislocation with subsequent numbness are an injury to the sciatic nerve or surrounding soft tissue/ vasculature. Risks of surgery include, but are not limited to bleeding, infection, damage to nearby structures, continued pain, need for further surgery , intraoperative fracture, nerve palsy, hardware failure or loosening, dislocation, leg length discrepancy, stroke, heart attack, blood clot and . They wished to proceed. The patient will be n.p.o. He last ate at 6 a.m. He will be n.p.o. and on bed rest. Informed consent was signed and placed in the chart. Left lower extremity is signed. He will be admitted to [facility] at least after the surgery. He will be educated with physical therapy about posterior hip precautions and mobilized with physical therapy. The patient's home medications will be restarted after surgery and he will be on p.r.n. analgesia with a bowel regimen. [id number]/[facility] #: [id number] BAIRON
[2018-01-18] MEDS: Acetaminophen TAB* 325 MG PO PRN ×3 (06:20→17:04)
[2018-01-18] MEDS: Levothyroxine TAB* 150 MCG TAB PO SCH (06:20)
[2018-01-18] MEDS: Clindamycin 600 MG IVPREMIX(* 600 MG/50 ML SDV IV SCH ×2 (06:22→14:07)
[2018-01-18 06:40] LABS: Hematocrit 38 % (42-52); Hemoglobin 13.2 g/dl (14.0-18.0); Mean Platelet Volume 7.9 um3 (7.4-10.4); Platelet Count 171 10^3/ul (150-450)
[2018-01-18] MEDS: Mometasone/Formoter 200/5 MDI INH SCH ×2 (07:52→19:56)
[2018-01-18] MEDS: Magnesium Hydroxide LIQ* 30 ML UDC PO SCH ×2 (08:58→20:27)
[2018-01-18] MEDS: Docusate CAP* 100 MG PO SCH ×2 (08:58→20:27)
[2018-01-18] MEDS: Vitamin THERAPEUTIC TAB PO SCH (08:59)
--- NOTE | 2018-01-18 09:51 | PN ---
Progress Note - Progress Note Date of Service: 01/18/18 SOAP: Subjective: 47 y/o male s/p L ZONIA with post-op complication of dislocation after fall requiring repeat OR with poly exchange. VSS, afebrile overnight. Patient denies pain, working well with PT Objective: General- Well appearing, NAD, AO, sitting in chair comfortably. MSK- LLE- DF/PF = b/l, PT 2+, negative homans sign, SITLT, surgical dressing in place, no drainage noted, minimal induration around thigh, mild tender to palpation. Knee immobilizer in place. Vital Signs Temp 99.0 F 01/18/18 07:08 Pulse 76 01/18/18 07:55 Resp 14 01/18/18 07:55 BP 140/59 01/18/18 07:08 Pulse Ox 96 01/18/18 07:55 Intake & Output 01/17/18 01/18/18 01/18/18 18:59 06:59 18:59 Intake Total 2100 1430 127 Output Total 350 1450 50 Balance 1750 -20 77 Weight 133.81 kg 133.81 kg Intake: IV Fluids 1700 1030 127 ABX - CLINDAMYCIN 50 55 LR 1700 980 72 Oral 400 400 Output: Urine 50 Hairston 350 1450 Other: # Bowel Movements 1 Estimated Stool Amount Large Large Assessment: Stable Plan: - DVT prophylaxis- lovenox, coumadin - Continue PT/ OT - Working well with PT. - likely D/C to home. - Follow up with Dr. Owen within 10-14 days - H&H - stable - post-op IV ABX - Running = Due to dislocation & non- compliance, knee immobilizer on at all times, patient body habitus not suited for hip abductor brace. Acetaminophen (Tylenol Tab*) 650 mg PO Q4H PRN PRN Reason: PAIN OR TEMPERATURE Last Admin: 01/18/18 06:20 Dose: 650 mg Albuterol (Ventolin Hfa Inhaler*) 2 puff INH Q4H PRN PRN Reason: SOB/WHEEZING Bisacodyl (Dulcolax Supp*) 10 mg NE DAILY PRN PRN Reason: constipation Cyclobenzaprine HCl (Flexeril Tab*) 5 mg PO TID PRN PRN Reason: SPASMS Diphenhydramine HCl (Benadryl Iv*) 25 mg IV Q6H PRN PRN Reason: itching Docusate Sodium (Colace Cap*) 100 mg PO BID [facility] Last Admin: 01/18/18 08:58 Dose: Not Given Enoxaparin Sodium (Lovenox(*)) 40 mg SUBCUT Q24H [facility] Clindamycin HCl/Dextrose (Cleocin 600 Mg Ivpremix(*) Sdv) 600 mg in 50 mls @ 100 mls/hr IV Q8H [facility] Stop: 01/18/18 14:29 Last Admin: 01/18/18 06:22 Dose: 100 mls/hr Lactated Ringer's (Lactated Ringers 1000 Ml Bag*) 1,000 mls @ 100 mls/hr IV PER RATE [facility] Last Admin: 01/18/18 06:22 Dose: 100 mls/hr Levothyroxine Sodium (Synthroid Tab*) 150 mcg PO QAM@0600 [facility] Last Admin: 01/18/18 06:20 Dose: 150 mcg Magnesium Hydroxide (Milk Of Magnesia Liq*) 30 ml PO BID [facility] Last Admin: 01/18/18 08:58 Dose: Not Given Magnesium Hydroxide (Milk Of Magnesia Liq*) 30 ml PO Q6H PRN PRN Reason: constipation Mometasone Furoate/Formoterol Fumar (Dulera 200/5 Mdi*) 2 puff INH BID [facility] Last Admin: 01/18/18 07:52 Dose: 2 puff Morphine Sulfate (Morphine Vial*) 2 mg IV Q2H PRN PRN Reason: PAIN Multivitamins (Theragran Tab*) 1 tab PO DAILY [facility] Last Admin: 01/18/18 08:59 Dose: Not Given Ondansetron HCl (Zofran 40 Mg Vial*) 4 mg IV Q6H PRN PRN Reason: nausea Oxycodone HCl (Roxycodone Tab*) 10 mg PO Q4H PRN PRN Reason: PAIN - SEVERE Oxycodone/Acetaminophen (Percocet 5/325 Tab*) 2 tab PO Q4H PRN PRN Reason: PAIN Oxycodone/Acetaminophen (Percocet 5/325 Tab*) 1 tab PO Q4H PRN PRN Reason: PAIN Pharmacy Profile Note (Coumadin Daily Reminder*) 1 note FOLLOW UP 1700 [facility]
--- NOTE | 2018-01-18 14:24 | OP ---
OPERATIVE NOTE: DATE OF OPERATION: 01/17/18 DATE OF : 68 SURGEON: Jenniffer Owen MD [place]: [place] Pfeiffer Mr. Gaona did help throughout the procedure with preparation of the leg, wound retraction, manipulation of the hip, and wound closure. ANESTHESIOLOGIST: Dr. Florence. ANESTHESIA: Spinal. PRE-OP DIAGNOSIS: Traumatic dislocation of the left total hip arthroplasty. POST-OP DIAGNOSIS: Traumatic dislocation of the left total hip arthroplasty. OPERATIVE PROCEDURE: 1. Failed closed reduction under anesthesia of the dislocated left total hip prosthesis. 2. Open reduction of dislocated left total hip arthroplasty with femoral head and liner exchange. ESTIMATED BLOOD LOSS: 300 cc. COMPLICATIONS: None. SPECIMENS: Femoral head and polyethylene liner sent to Pathology. BRIEF HISTORY/INDICATIONS: Mr. Casillas is a 47-year-old gentleman who violated posterior hip precautions and had a traumatic fall dislocating the left hip prosthesis at approximately 8 a.m. today. He had left total hip arthroplasty without postoperative complications performed in April 2017 and has done well since then. Immediately after the patient's fall this morning in the shower, he had inability to bear weight or move the left lower extremity. He was back to [facility] and found on radiograph to have a dislocated left total hip arthroplasty. He has been n.p.o. and on bed rest. Plan was to take him urgently for closed versus open reduction of the left total hip arthroplasty. The patient had an MDM implant and radiograph suggested possible dislocation of the femoral head from the MDM insert as well. The patient and his family understood I would attempt a closed reduction but if this was not successful, I would open the hip and reduce the dislocation with femoral head and insert exchange. Informed consent was obtained from the patient and his family. They understood the risks of the procedure and wished to proceed. INTRAOPERATIVE FINDINGS: Intraoperatively, the patient's closed reduction was unsuccessful. The femoral head was easily brought out to length and manipulated ; however, the head remained perched on the edge of the acetabulum on C-arm views. This indicated that the femoral head had dislocated not only from the acetabulum but from the polyethylene MDM insert. Decision was made to open the hip. The femoral head had indeed dislocated from the polyethylene insert. Both of these were removed and new insert with femoral head was placed. The patient was noted to have complete disruption of his posterior soft tissue repair. After exchange of the femoral head and insert, the hip was stable in all positions. DESCRIPTION OF PROCEDURE: Mr. Casillas was identified in the preanesthesia unit. His left lower extremity was marked as the correct operative side. Informed consent was signed and placed in the chart. The patient was taken to the operating room and placed under spinal anesthesia. A preop time-out was made to correctly identify the patient's side and site. Under full spinal anesthesia , closed reduction attempt was performed. The leg was easily manipulated and brought out to length. However, the C-arm view showed the head was perched in an abnormal position on the edge of the acetabulum. This indicated that the femoral head had dislocated from the MDM liner. At this point, the decision was made to open the hip in order to exchange the head and liner, and reduce the hip. The patient was placed in the right lateral decubitus position on the peg board. All bony prominences were well padded. Hairston catheter was placed. Left lower extremity was prepped and draped in the usual sterile fashion. Preop time-out was made to correctly identify the patient's side and site. Appropriate perioperative antibiotics were given within 1 hour of incision. The patient's prior hip incision was opened using a 10-blade and electrocautery. The electrocautery was used to dissect down through the subcutaneous fat layer, which was at least 8 cm thick. The new 10-blade was used to incise the lateral fascial layer in line with the skin incision. A Charnley retractor was placed. Large amounts of hematoma were encountered at this point. Electrocautery was used to elevate a posterior soft tissue flap and this did eventually encounter the torn posterior capsular repair. This posterior capsular flap was tagged with 4 Ethibond which were size 5 Ethibond. The proximal femur was presented and the femoral head had dislocated from the MDM liner. A bone tamp was used to remove the femoral head. Femoral neck had no obvious damage. Careful debridement of scar tissue around the femoral neck was performed. There was no loosening or periprosthetic fracture around the femur. The femur was carefully retracted anteriorly. Polyethylene insert was carefully removed from the acetabulum. Acetabulum and MDM cement with metal liner were inspected for any loosening or abnormality. None were noted. The hip was copiously irrigated with sterile saline. A 28 +0 LFIT V40 metal femoral head was prepared with a Restorationist MDM X3 insert 28/48/42E. The liner and head were prepared at the back table. They were then impacted onto the femoral neck without difficulty and were noted to be stable. The hip was carefully reduced and taken through a range of motion. The hip was stable in all positions. The hip was once again copiously irrigated with sterile saline. Previously tagged capsule was reapproximated to the posterolateral femur through 2 trochanteric drill holes. The lateral fascial layer was closed using interrupted #1 Vicryl. The rest of the incision was closed in a layered fashion using 0 and 2-0 Vicryl. The skin was closed using running 3-0 Monocryl and Dermabond. Sterile Adaptic, 4x4s, and paper tape were used to cover the incision. The patient's anesthesia was reversed without difficulty. He was placed in an abductor pillow and brought to the PACU in stable condition. He was demonstrating dorsiflexion and plantarflexion immediately. Intended DVT prophylaxis will be Coumadin with a Lovenox bridge. Intended weightbearing will be weightbearing as tolerated with posterior hip precautions. He will have a knee immobilizer on when ambulating. Postoperative film showed no periprosthetic fracture. Femoral head is reduced in the acetabulum. [id number]/[facility] #: [id number] MTDD
[2018-01-18] MEDS ORDERED: Warfarin TAB(*) 6 MG PO SCH (17:00)
[2018-01-18] MEDS ORDERED: Enoxaparin(*) 40 MG/0.4 ML SYR SUBCUT SCH (17:00)
[2018-01-19] MEDS: Acetaminophen TAB* 325 MG PO PRN ×2 (05:22→13:10)
[2018-01-19] MEDS: Levothyroxine TAB* 150 MCG TAB PO SCH (05:22)
[2018-01-19 05:32] LABS: Hematocrit 37 % (42-52); Hemoglobin 12.6 g/dl (14.0-18.0); Mean Platelet Volume 8.1 um3 (7.4-10.4); Platelet Count 168 10^3/ul (150-450)
[2018-01-19 05:40] LABS: INR 1.23 (0.77-1.02)
[2018-01-19] MEDS: Mometasone/Formoter 200/5 MDI INH SCH (08:07)
[2018-01-19] MEDS: Docusate CAP* 100 MG PO SCH (08:08)
[2018-01-19] MEDS: Vitamin THERAPEUTIC TAB PO SCH (08:08)
[2018-01-19] MEDS: Magnesium Hydroxide LIQ* 30 ML UDC PO SCH (08:08)
[2018-01-19 11:57] VITALS: BP 116/52
--- NOTE | 2018-01-19 15:25 | PN ---
Progress Note - Progress Note Date of Service: 01/19/18 SOAP: Subjective: 47 y/o male with PMH significant for Down Syndrome s/p L ZONIA with post-op complication of dislocation after fall requiring repeat OR with poly exchange. VSS, afebrile overnight. Patient denies pain, working well with PT. Father and friend in room. Objective: Vital Signs Temp 99.1 F 01/19/18 11:34 Pulse 66 01/19/18 11:34 Resp 18 01/19/18 11:34 BP 116/52 01/19/18 11:34 Pulse Ox 96 01/19/18 11:34 Intake & Output 01/18/18 01/19/18 01/19/18 18:59 06:59 18:59 Intake Total 1262 1510 Output Total 2075 1400 1850 Balance -813 110 -1850 Intake: IV Fluids 127 ABX - CLINDAMYCIN 55 LR 72 Oral 1135 1510 Output: Urine 5 1400 1850 Other: Estimated Void Medium # Bowel Movements 1 0 Estimated Stool Amount Small Medium # Voids 1 Laboratory Results - last 24 hr 01/19/18 01/19/18 05:16 05:16 Hgb 12.6 L Hct 37 L Plt Count 168 MPV 8.1 INR (Anticoag Therapy) 1.23 H General: WN, WD, NAD, A&O, sitting comfortably in chair. Able to transfer with walker to bed. LLE- Dressing removed. Incision C/D/I. No drainage, erythema, warmth. Minimal induration around thigh, mild tender to palpation. Knee immobilizer in place. Calf soft. +DF/PF, 2+ DP pulse, SITLT, Assessment: 47 y/o male s/p L hip open reduction with poly exchange by Dr. Owen on 01/17/18. Plan: - D/C home today - DVT prophylaxis: coumadin - Home nursing, PT - Follow up with Dr. Owen within 10-14 days - H&H - stable - Due to dislocation & non- compliance, knee immobilizer on at all times, patient body habitus not suited for hip abductor brace.
--- NOTE | 2018-01-19 22:31 | DS ---
AMENDED REPORT NOW INCLUDES COSIGNER DESIGNATION - ESIGNED BEFORE ADJUSTMENTS DISCHARGE SUMMARY: DATE OF ADMISSION: 01/17/18 DATE OF DISCHARGE: 01/19/18 ATTENDING PROVIDER: Jenniffer Owen MD * (DICTATED BYTERRY YOST) CHIEF COMPLAINT: 1. Dislocation of left total hip prosthesis. 2. Down syndrome. 3. Hypothyroidism. 4. Asthma. 5. Sleep apnea. DISCHARGE DIAGNOSES: 1. Status post open reduction, femoral head and liner exchange. 2. Down syndrome. 3. Hypothyroidism. 4. Asthma. 5. Sleep apnea. PROCEDURE: Left hip open reduction, dislocated left total hip arthroplasty with femoral head and liner exchange. BRIEF HISTORY: Mr. Casillas has history of left total hip arthroplasty with Dr. Owen on 04/18/17. On 01/17/18 he was in the shower and fell dislocating his hip. He initially underwent attempted closed reduction under anesthesia and then proceeded to have open reduction with femoral head and liner exchange. HOSPITAL COURSE: Mr. Casillas was admitted to [facility] on 01/17/18, where he underwent initially an attempt at closed reduction under anesthesia of dislocated left total hip prosthesis and then proceeded to have an open reduction of the dislocated left total hip arthroplasty with femoral head and liner exchange. Postoperatively, he recovered on the short-stay unit. On postoperative day #1, his Hairston catheter was removed and he was able to urinate on his own. He was advanced to a regular diet without difficulty. Pain was controlled with p.o. Percocet and he was restarted on his home medications. His labs and vitals signs remained stable. He was able to weight bear as tolerated on the left lower extremity and advanced appropriately with physical therapy and occupational therapy. DVT prophylaxis was managed with Lovenox and Coumadin until he reached therapeutic INR. By postoperative day #2, he was medically and orthopedically stable for discharge home with services. PHYSICAL EXAMINATION: Well-nourished, well-developed, in no acute distress, alert and oriented, sitting comfortably in a chair. Vitals on the day of discharge: Temperature 99.1, pulse 66, respirations 18, blood pressure 116/52. Left lower extremity dressing was removed. The incision was clean, dry, and intact with no drainage, erythema or warmth. Minimal induration around the thigh. Mild tenderness to palpation. Knee immobilizer was in place. His calf was soft. He had positive dorsiflexion, plantarflexion, and 2+ DP pulse. Sensation grossly intact to light touch distally. LABORATORY DATA: On date of discharge, hemoglobin 12.6, hematocrit 37, platelet 168, INR 1.23. Radiographs from 01/17/18 showed reduction of previously dislocated left hip prosthesis. DISCHARGE MEDICATIONS: 1. Ventolin inhaler as needed for wheezing. 2. Vitamin D 1000 International Units p.o. daily. 3. Farida 180 mg in the morning. 4. Indomethacin 50 mg t.i.d. as needed for gout. 5. Levothyroxine 150 mcg in the morning. 6. Imodium 2 mg q.4 hours as needed for diarrhea. 7. Foltanx tab 2 tabs daily. 8. Dulera 1 puff b.i.d. 9. Multivitamin. 10. Percocet 5/325 one tablet every 6 hours as needed for pain. 11. Vitamin A, vitamin C, vitamin E, zinc, and copper tablets two tabs b.i.d. 12. Warfarin 2 mg tablets as prescribed. 13. He will take 6 mg of Coumadin today, 01/19/18 and 6 mg tomorrow, 01/20/18. CONDITION ON DISCHARGE: Stable. DISCHARGE INSTRUCTIONS: Mr. Casillas is a 47-year-old gentleman, postoperative day #2, status post left total hip open reduction with femoral head and poly exchange on 01/17/18. His hospital course after surgery was uncomplicated. He was orthopedically and medically stable for discharge home with services on postoperative day #2. Labs and vital signs were stable. He will take 6 mg of Coumadin tonight, 6 mg of Coumadin on tomorrow Sunday night, and he will recheck his INR on Sunday. He will have INR draws on Mondays and with visiting services. He will remain weightbearing as tolerated on the left lower extremity with an immobilizer brace intact at all times. He will have home PT twice a week. He will take Percocet for pain control and Colace up to 3 times a day for constipation. He will follow up with Dr. Owen in 10 to 14 days for incision check and suture removal. He was instructed to go immediately to the ER if he were to develop chest pain or shortness of breath. He will call our office if he develops fever, increasing pain or increasing redness. TERRY YOST [id number]/[facility] #: [id number] [place]
== END 2018-01-19 13:30 | disposition home health service (06) | DRG 467 ==
LOC: ED 08:39 → UNDOADMIN 10:05 → SSU 10:05 → ED 12:27 → OR 14:29 → SSU 18:24
PROVIDERS: ADMIT Orthopaedic Surgery Adult Reconstructive Orthopaedic Surgery; ATTEND Orthopaedic Surgery Adult Reconstructive Orthopaedic Surgery
PROC: 0SPB09Z Removal of Liner from Left Hip Joint, Open Approach (ICD-10-PCS; 2018-01-17)
PROC: 0SUE09Z Supplement Left Hip Joint, Acetabular Surface with Liner, Open Approach (ICD-10-PCS; 2018-01-17)
PROC: 0SPS0JZ Removal of Synthetic Substitute from Left Hip Joint, Femoral Surface, Open Approach (ICD-10-PCS; 2018-01-17)
PROC: 0SRS019 Replacement of Left Hip Joint, Femoral Surface with Metal Synthetic Substitute, Cemented, Open Approach (ICD-10-PCS; principal; 2018-01-17 15:00)
DX: T84.021A Dislocation of internal left hip prosthesis, initial encounter (principal); K90.41 Non-celiac gluten sensitivity; Z68.41 Body mass index [BMI] 40.0-44.9, adult; Y79.2 Prosthetic and other implants, materials and accessory orthopedic devices associated with adverse incidents; J45.909 Unspecified asthma, uncomplicated; G47.30 Sleep apnea, unspecified; Z96.642 Presence of left artificial hip joint; I87.2 Venous insufficiency (chronic) (peripheral); M06.9 Rheumatoid arthritis, unspecified; W18.2XXA Fall in (into) shower or empty bathtub, initial encounter; M81.0 Age-related osteoporosis without current pathological fracture; H91.90 Unspecified hearing loss, unspecified ear; E03.9 Hypothyroidism, unspecified; K58.9 Irritable bowel syndrome, unspecified; E66.3 Overweight; Y92.9 Unspecified place or not applicable; Z88.1 Allergy status to other antibiotic agents; Z88.0 Allergy status to penicillin; Z91.048 Other nonmedicinal substance allergy status; Q90.9 Down syndrome, unspecified; Z79.01 Long term (current) use of anticoagulants; Z91.041 Radiographic dye allergy status; Z91.19 Patient's noncompliance with other medical treatment and regimen
CPT/HCPCS: 36415; 71045; 72170; 76000; 80048; 85014; 85018; 85025; 85049; 85610; 85730; 88300; 93005; 94640; 99285; A9270-GY; C1776; G8978-GP-CI; G8979-GP-CH; G8987-GO-CK; G8988-GO-CJ; J1650; J1885; J2250; J3010

== ENCOUNTER 2024-01-15 14:54 | Observation (INO) ==
[2024-01-15] MEDS: Propofol 10 MG/ML 20 ML BTL IV PUSH ONE (20:45)
[2024-01-15] MEDS: fentaNYL 100 mcg/2 ml 50 MCG/ML VIAL IV SLOW PU ONE (23:13)
[2024-01-16 01:37] LABS: ABS Basophils 0.1 10^3/uL (0.0-0.1); ABS Lymphocytes 1.5 10^3/uL (1.0-4.8); ABS Monocytes 0.9 10^3/uL (0.0-1.1); ABS Neutrophils 7.9 10^3/uL (1.5-7.6); Eosinophil % 0.1 %; Hematocrit 38.9 % (38-53); Hemoglobin 13.5 g/dL (13.2-16.3); Mean Corpuscular Hemoglobin 34.1 pg (27-33); Mean Corpuscular Hgb Conc 34.8 g/dL (31-36); Mean Corpuscular Volume 97.9 fL (80-97); Mean Platelet Volume 7.9 fL (7.5-11.2); Platelet Count 275 10^3/uL (150-450); Red Blood Count 3.98 10^6/uL (4.06-5.63); Red Cell Distribution Width 14.3 % (12-17); White Blood Count 10.4 10^3/uL (3.6-10.2)
[2024-01-16 02:30] LABS: ALT 19 U/L (7-52); Albumin 3.3 g/dL (3.2-5.2); Albumin/Globulin Ratio 1.1 (1-3); Alkaline Phosphatase 44 U/L (35-149); Anion Gap 6 mmol/L (2-16); Blood Urea Nitrogen 9 mg/dL (6-24); CO2 Carbon Dioxide 27 mmol/L (22-32); Calcium 8.2 mg/dL (8.6-10.3); Chloride 104 mmol/L (101-111); Creatinine, Serum 0.87 mg/dL (0.67-1.17); Globulin 3.1 g/dL (2-4); Glucose 122 mg/dL (70-100); Sodium 137 mmol/L (135-145); Total Bilirubin 0.7 mg/dL (0.2-1.0); Total Protein 6.4 g/dL (6.4-8.9); eGFR CKD-EPI 102.5 (>60)
[2024-01-16 04:10] LABS: Potassium Redraw 4.8 mmol/L (3.5-5.0)
[2024-01-16 04:46] LABS: ALT 16 U/L (7-52); Albumin 3.4 g/dL (3.2-5.2); Albumin/Globulin Ratio 1.1 (1-3); Alkaline Phosphatase 49 U/L (35-149); Anion Gap 8 mmol/L (2-16); Blood Urea Nitrogen 9 mg/dL (6-24); CO2 Carbon Dioxide 28 mmol/L (22-32); Calcium 8.4 mg/dL (8.6-10.3); Chloride 104 mmol/L (101-111); Creatinine, Serum 0.85 mg/dL (0.67-1.17); Globulin 3.1 g/dL (2-4); Glucose 120 mg/dL (70-100); Sodium 140 mmol/L (135-145); Total Bilirubin 0.8 mg/dL (0.2-1.0); Total Protein 6.5 g/dL (6.4-8.9); eGFR CKD-EPI 103.3 (>60)
[2024-01-16] MEDS: Levothyroxine 100 MCG/5 ML VIAL IV SCH (06:40)
[2024-01-16] MEDS: Heparin 5000 UNITS/ML 1 mL VIAL SUBCUT SCH (06:40)
[2024-01-16 10:43] LABS: ABS Basophils 0.1 10^3/uL (0.0-0.1); ABS Lymphocytes 1.2 10^3/uL (1.0-4.8); ABS Monocytes 0.9 10^3/uL (0.0-1.1); ABS Neutrophils 8.5 10^3/uL (1.5-7.6); Eosinophil % 0.2 %; Hematocrit 41.3 % (38-53); Hemoglobin 13.8 g/dL (13.2-16.3); Lymphocyte % 11.1 %; Mean Corpuscular Hemoglobin 33.1 pg (27-33); Mean Corpuscular Hgb Conc 33.4 g/dL (31-36); Mean Corpuscular Volume 99.3 fL (80-97); Mean Platelet Volume 7.7 fL (7.5-11.2); Platelet Count 288 10^3/uL (150-450); Red Blood Count 4.16 10^6/uL (4.06-5.63); Red Cell Distribution Width 14.4 % (12-17); White Blood Count 10.7 10^3/uL (3.6-10.2)
[2024-01-16 12:04] LABS: Calcium 8.8 mg/dL (8.6-10.3); Creatinine, Serum 0.87 mg/dL (0.67-1.17); Potassium 4.7 mmol/L (3.5-5.0); eGFR CKD-EPI 102.5 (>60)
[2024-01-16] MEDS ORDERED: Lidocaine 2% PF 5 ML VIAL ONE (14:58)
[2024-01-16] MEDS ORDERED: Midazolam 2 mg/2 ml VIAL 1 mg/ml 2 ml VIAL (2 mg) ONE (14:58)
[2024-01-16] MEDS ORDERED: Propofol 10 MG/ML 20 ML BTL ONE (14:58)
[2024-01-16] MEDS ORDERED: Succinylcholine 200 mg VIAL 20 mg/ml 10 ml VIAL (200 mg) ONE (15:19)
[2024-01-16] MEDS ORDERED: Rocuronium 50 mg VIAL 10 mg/ml 5 ml VIAL (50 mg) ONE (15:19)
[2024-01-16] MEDS ORDERED: fentaNYL 100 mcg/2 ml 50 MCG/ML VIAL ONE (15:21)
[2024-01-17 08:09] LABS: ABS Basophils 0.1 10^3/uL (0.0-0.1); ABS Lymphocytes 1.5 10^3/uL (1.0-4.8); ABS Monocytes 1.1 10^3/uL (0.0-1.1); ABS Neutrophils 8.6 10^3/uL (1.5-7.6); Eosinophil % 0.2 %; Hematocrit 37.6 % (38-53); Hemoglobin 12.6 g/dL (13.2-16.3); Lymphocyte % 13.3 %; Mean Corpuscular Hemoglobin 33.2 pg (27-33); Mean Corpuscular Hgb Conc 33.4 g/dL (31-36); Mean Corpuscular Volume 99.3 fL (80-97); Platelet Count 277 10^3/uL (150-450); Red Blood Count 3.79 10^6/uL (4.06-5.63); Red Cell Distribution Width 14.6 % (12-17); White Blood Count 11.3 10^3/uL (3.6-10.2)
[2024-01-17 10:30] VITALS: BP 110/55
== END 2024-01-17 10:55 | disposition home or self-care (01) ==
LOC: ED 14:54 → EDHOLD 14:54 → AA 01-16 09:51 → SSU 01-16 17:49
PROVIDERS: ADMIT Internal Medicine; ATTEND Internal Medicine